=== PATIENT | male | born 1955 | race Caucasian/White ===

== ENCOUNTER 2019-10-01 01:16 | Inpatient (IN) | payer SELFPAY ==
[~2019-10-01] VITALS: Ht 177.8 cm; Wt 89.8 kg
[2019-10-01] VITALS (7 sets, daily range): BP systolic 107–130; BP diastolic 52–71
[2019-10-01 02:19] LABS: Alanine Aminotransferase 33 U/L (16-61); Albumin 1.8 g/dL (3.4-5.0); Amylase 33 U/L (25-115); Anion Gap 20 (5-15); Aspartate Aminotransferase 219 U/L (15-37); BUN/Creatinine Ratio 18.2; Blood Urea Nitrogen 25 mg/dL (7-18); Calcium 7.7 mg/dL (8.5-10.1); Carbon Dioxide 17 mmol/L (21-32); Chloride 90 mmol/L (98-107); GFR African American 67 mL/min; GFR Non-African American 55 mL/min; Glucose 166 mg/dL (74-106); INR 1.16 (0.9-1.15); Lipase 350 U/L (73-393); Magnesium 1.7 mg/dL (1.6-2.6); Partial Thromboplastin Time 28.9 sec (23.64-32.05); Potassium 3.4 mmol/L (3.5-5.1); Sodium 127 mmol/L (136-145)
[2019-10-01 02:25] LABS: Alkaline Phosphatase 502 U/L (45-117); Bilirubin, Total 9.7 mg/dL (0.2-1.0); Total Protein 5.5 g/dL (6.4-8.2)
[2019-10-01 02:30] LABS: Hematocrit 20.3 % (41.0-53.0); Mean Corpuscular Hgb Conc. 30.9 g/dL (32.0-36.0); Mean Corpuscular Volume 100.2 fL (80.0-100.0); Platelet Count (auto) 310 10^3/uL (140-450); Red Blood Cells 2.03 10^6/uL (4.5-5.90); White Blood Cell 13.3 10^3/uL (4.4-10.8)
[2019-10-01 02:31] LABS: Red Cell Distribution Width 20.5 % (11.8-14.3)
[2019-10-01 02:32] LABS: Hemoglobin 6.3 g/dL (13.5-17.5)
[2019-10-01 02:34] LABS: Basophils % (manual) 0 (0.0-2.0); Blast Cells 0; Eosinophils % (manual) 0 (0-7); Metamyelocytes % 0; Myelocytes % 0; Promyelocytes % 0; Reactive Lymphocytes 0
[2019-10-01] MEDS ORDERED: PANTOPRAZOLE 40 MG/10 ML VIAL INJ IV ONE (03:00)
[2019-10-01] MEDS ORDERED: PANTOPRAZOLE 40mg/50ML NS AE 50 ML IV ONE (03:00)
[2019-10-01 03:23] LABS: Lactic Acid w/Reflex 3.8 mmol/L (0.4-2.0)
[2019-10-01 03:26] LABS: Urine Amorphous Crystal FEW /hpf (None Seen); Urine Bacteria FEW /hpf (None Seen); Urine Blood 1+ /uL (Negative); Urine Hyaline Cast MANY /lpf (0 - 2); Urine Mucus FEW (None Seen)
[2019-10-01] MEDS ORDERED: PIPERACILLIN-TAZOB 3.375GM 100 ML IV ONE (04:00)
[2019-10-01] MEDS ORDERED: VANCOMYCIN 1GM/250ML 250 ML IV ONE (04:00)
[2019-10-01 05:02] LABS: Band Neutrophils % (manual) 1; Lymphocytes % (manual) 7 (10.0-50.0); Monocytes % (manual) 5 (0-12)
[2019-10-01 05:06] LABS: Urine WBC 4 /hpf (0 - 3)
[2019-10-01] MEDS ORDERED: SODIUM CHLORIDE 0.9% 1,000 ML IV SCH (06:00)
[2019-10-01] MEDS ORDERED: MORPHINE SULF INJ 2 MG/ML SYRINGE 1ML IV PRN (06:00)
[2019-10-01] MEDS ORDERED: NITROGLYCERIN 0.4 MG SL TAB SL PRN (06:00)
[2019-10-01] MEDS ORDERED: DEXTROSE (50%) 50ML SYRG IV PRN (06:00)
[2019-10-01] MEDS ORDERED: ONDANSETRON HCL 4 MG/2 ML VIAL IV PRN (06:00)
[2019-10-01] MEDS: PANTOPRAZOLE 40mg/50ML NS AE 50 ML IV SCH ×4 (06:42→21:52)
[2019-10-01] MEDS: ACCU-CHEK COMFORT CURVE STRIP VI SCH ×3 (06:53→17:58)
[2019-10-01] MEDS: InsuLIN REG 1unit/0.01ml Soln (100units/ml) SC SCH ×3 (06:54→18:10)
[2019-10-01] MEDS: PIPERACILLIN-TAZOB 3.375GM 100 ML IV SCH ×3 (10:00→21:23)
[2019-10-01] MEDS ORDERED: ASPI-378 PO (10:13)
[2019-10-01] MEDS ORDERED: MULT-928 PO (10:48)
[2019-10-01] MEDS ORDERED: ASPI-264 PO (10:48)
[2019-10-01] MEDS ORDERED: LORazepam 2MG/ML-1ML VIAL IV PRN (13:30)
[2019-10-01] MEDS: FOLIC ACID 1 MG, MULTIPLE VITAMIN 10 ML, MAGNESIUM SULF SDV 50% 8 MEQ, THIAMINE INJ 100... INJ SCH ×5 (14:57)
[2019-10-01] MEDS ORDERED: LISI-646 PO (15:08)
[2019-10-01] MEDS ORDERED: CARV6.2551 PO (15:08)
[2019-10-01] MEDS ORDERED: FOLIC ACID 1 MG, MULTIPLE VITAMIN 10 ML, MAGNESIUM SULF SDV 50% 8 MEQ, THIAMINE INJ 100... INJ SCH ×5 (15:30)
[2019-10-01] MEDS: chlordiazePOXIDE HCL 25 MG CAP PO PRN (15:59)
[2019-10-01] MEDS: SUCRALFATE 1 GM/10 ML ORAL SUSP PO SCH ×2 (16:32→21:23)
[2019-10-01 17:25] LABS: Hematocrit 23.9 % (41.0-53.0); Hemoglobin 7.8 g/dL (13.5-17.5); Mean Corpuscular Hemoglobin 31.4 pg (28.0-32.0); Mean Corpuscular Hgb Conc. 32.7 g/dL (32.0-36.0); Mean Corpuscular Volume 95.9 fL (80.0-100.0); Platelet Count (auto) 285 10^3/uL (140-450); Red Blood Cells 2.49 10^6/uL (4.5-5.90); White Blood Cell 11.2 10^3/uL (4.4-10.8)
[2019-10-01 17:40] LABS: Red Cell Distribution Width 20.3 % (11.8-14.3)
[2019-10-01 17:41] LABS: Folate (Folic Acid) 5.43 ng/mL (5.38-24)
[2019-10-01 17:42] LABS: Band Neutrophils % (manual) 0; Basophils % (manual) 0 (0.0-2.0); Blast Cells 0; Metamyelocytes % 0; Myelocytes % 0; Promyelocytes % 0; Reactive Lymphocytes 0
[2019-10-01 20:43] LABS: Eosinophils % (manual) 1 (0-7); Lymphocytes % (manual) 13 (10.0-50.0); Monocytes % (manual) 4 (0-12)
[2019-10-02] MEDS: InsuLIN REG 1unit/0.01ml Soln (100units/ml) SC SCH ×4 (01:11→17:56)
[2019-10-02] MEDS: PANTOPRAZOLE 40mg/50ML NS AE 50 ML IV SCH ×4 (02:18→16:51)
[2019-10-02] MEDS: PIPERACILLIN-TAZOB 3.375GM 100 ML IV SCH ×3 (04:53→16:51)
[2019-10-02 05:15] VITALS: BP 116/42
[2019-10-02] MEDS: ACCU-CHEK COMFORT CURVE STRIP VI SCH ×4 (06:00→17:54)
[2019-10-02] MEDS: SUCRALFATE 1 GM/10 ML ORAL SUSP PO SCH ×3 (06:36→16:51)
[2019-10-02 06:45] LABS: Hemoglobin 7.2 g/dL (13.5-17.5); Mean Corpuscular Hgb Conc. 32.6 g/dL (32.0-36.0)
[2019-10-02 06:46] LABS: Mean Corpuscular Volume 95.3 fL (80.0-100.0); Platelet Count (auto) 262 10^3/uL (140-450); White Blood Cell 13.1 10^3/uL (4.4-10.8)
[2019-10-02 06:49] LABS: Albumin 1.8 g/dL (3.4-5.0); Calcium 7.6 mg/dL (8.5-10.1); Potassium 3.1 mmol/L (3.5-5.1)
[2019-10-02 06:52] LABS: BUN/Creatinine Ratio 18.9; Bilirubin, Total 11.3 mg/dL (0.2-1.0); Total Protein 5.2 g/dL (6.4-8.2)
[2019-10-02 06:57] LABS: Red Cell Distribution Width 21.1 % (11.8-14.3)
[2019-10-02 06:58] LABS: Band Neutrophils % (manual) 0; Basophils % (manual) 0 (0.0-2.0); Blast Cells 0; Metamyelocytes % 0; Myelocytes % 0; Promyelocytes % 0; Reactive Lymphocytes 0
[2019-10-02 07:57] LABS: Eosinophils % (manual) 1 (0-7); Lymphocytes % (manual) 11 (10.0-50.0); Monocytes % (manual) 6 (0-12)
[2019-10-02] MEDS ORDERED: POTASSIUM CHLORIDE 60 MEQ, LIDOCAINE 1% (LOCAL ANESTH.) 6 ML in SODIUM CHL 0.9% 500 ML IV ONE (08:45)
[2019-10-02 09:00] VITALS: BP 98/55
[2019-10-02] MEDS: chlordiazePOXIDE HCL 25 MG CAP PO PRN (09:20)
[2019-10-02] MEDS: NICOTINE 21MG/24 HR TOPICAL PATCH TD SCH (11:21)
[2019-10-02 13:00] VITALS: BP 96/57
[2019-10-02] MEDS ORDERED: SODIUM CHLORIDE 0.9% 500 ML IV ONE (13:30)
[2019-10-02] MEDS: FOLIC ACID 1 MG, MULTIPLE VITAMIN 10 ML, MAGNESIUM SULF SDV 50% 8 MEQ, THIAMINE INJ 100... INJ SCH ×5 (16:51)
[2019-10-02 17:00] VITALS: BP 107/55
[2019-10-02 21:31] VITALS: BP 122/59
[2019-10-03] VITALS (9 sets, daily range): BP systolic 114–131; BP diastolic 63–76
[2019-10-03] MEDS: PANTOPRAZOLE 40mg/50ML NS AE 50 ML IV SCH ×5 (00:05→17:58)
[2019-10-03] MEDS: SUCRALFATE 1 GM/10 ML ORAL SUSP PO SCH ×4 (00:05→16:49)
[2019-10-03] MEDS: PIPERACILLIN-TAZOB 3.375GM 100 ML IV SCH ×4 (00:05→15:42)
[2019-10-03] MEDS: ACCU-CHEK COMFORT CURVE STRIP VI SCH ×3 (00:34→11:29)
[2019-10-03] MEDS: InsuLIN REG 1unit/0.01ml Soln (100units/ml) SC SCH ×3 (00:34→11:32)
[2019-10-03 05:51] LABS: Hemoglobin 7.2 g/dL (13.5-17.5)
[2019-10-03 05:53] LABS: Hematocrit 22.6 % (41.0-53.0); Mean Corpuscular Hemoglobin 31.1 pg (28.0-32.0); Mean Corpuscular Hgb Conc. 31.9 g/dL (32.0-36.0); Mean Corpuscular Volume 97.6 fL (80.0-100.0); Platelet Count (auto) 286 10^3/uL (140-450); Red Blood Cells 2.31 10^6/uL (4.5-5.90); White Blood Cell 13.8 10^3/uL (4.4-10.8)
[2019-10-03 06:07] LABS: INR 1.14 (0.9-1.15)
[2019-10-03 06:14] LABS: Red Cell Distribution Width 20.6 % (11.8-14.3)
[2019-10-03 06:15] LABS: Band Neutrophils % (manual) 0; Blast Cells 0; Metamyelocytes % 0; Myelocytes % 0; Promyelocytes % 0; Reactive Lymphocytes 0
[2019-10-03] MEDS: chlordiazePOXIDE HCL 25 MG CAP PO PRN (06:15)
[2019-10-03 06:19] LABS: Albumin 1.7 g/dL (3.4-5.0); BUN/Creatinine Ratio 16.2; Bilirubin, Total 11.4 mg/dL (0.2-1.0); Calcium 7.7 mg/dL (8.5-10.1); Total Protein 5.1 g/dL (6.4-8.2)
[2019-10-03 07:14] LABS: Basophils % (manual) 1 (0.0-2.0); Eosinophils % (manual) 1 (0-7); Lymphocytes % (manual) 13 (10.0-50.0); Monocytes % (manual) 3 (0-12)
[2019-10-03] MEDS ORDERED: POTASSIUM CHL 20 Meq TABLET PO ONE (08:45)
[2019-10-03] MEDS: NICOTINE 21MG/24 HR TOPICAL PATCH TD SCH (08:58)
[2019-10-03] MEDS: FOLIC ACID 1 MG, MULTIPLE VITAMIN 10 ML, MAGNESIUM SULF SDV 50% 8 MEQ, THIAMINE INJ 100... INJ SCH ×5 (13:16)
== END 2019-10-03 18:19 | disposition home or self-care (01) | DRG 378 ==
LOC: EDBD 01:16 → ER 01:16 → TELE 01:17 → TELE-WESTW 09:06
PROVIDERS: ADMIT Nurse Practitioner; ATTEND Internal Medicine
PROC: 30233N1 Transfusion of Nonautologous Red Blood Cells into Peripheral Vein, Percutaneous Approach (ICD-10-PCS; principal; 2019-10-01)
DX: K92.2 Gastrointestinal hemorrhage, unspecified (principal); E87.1 Hypo-osmolality and hyponatremia; J90 Pleural effusion, not elsewhere classified; D32.9 Benign neoplasm of meninges, unspecified; E11.65 Type 2 diabetes mellitus with hyperglycemia; D64.9 Anemia, unspecified; F10.229 Alcohol dependence with intoxication, unspecified; I10 Essential (primary) hypertension; I25.10 Atherosclerotic heart disease of native coronary artery without angina pectoris; K70.30 Alcoholic cirrhosis of liver without ascites; M16.11 Unilateral primary osteoarthritis, right hip; R31.0 Gross hematuria; D63.8 Anemia in other chronic diseases classified elsewhere
CPT/HCPCS: 36415; 70450; 71250; 72125; 74176; 80053; 80320; 81001; 82140; 82150; 82270; 82607; 82746; 82962; 83036; 83605; 83690; 83735; 84443; 84484; 85007; 85027; 85610; 85730; 86850; 86900; 86901; 86920; 87040; 87086; 96365; 96367; 96375; C9113; G0378; J1815; J2001; J2543